=== PATIENT | female | born 1995 | race Caucasian/White ===

== ENCOUNTER 2020-02-18 18:03 | Emergency (ER) | payer SELFPAY ==
--- NOTE | ~2020-02-18 | US_ITS ---
EXAMINATION: US OB <=14 wk fetus w TV EXAM DATE: 02/18/2020 19:42 INDICATION: , pelvic pain. First trimester. TECHNIQUE: Pelvic obstetrical transabdominal sonogram was performed by a technologist. There are mu ltiple grayscale and Doppler images available for interpretation. Correlation is made to CT abdomen p braulio 02/15/2019. FINDINGS: The uterus measures 10.0 x 6.3 x 6.9 cm, is retroverted. There is an intrauterine gestation sac with mean sac diameter measured 1.8 cm, and a pole measuring 7 mm corresponding to estimat ed gestational age 6 weeks 4 days. heart rate identified at 124 bpm. There is a subchorionic he matoma measuring 2.4 x 1.4 x 1.6 cm. Yolk sac identified. The ovaries are unremarkable. IMPRESSION: Early live intrauterine gestation with moderate size subchorionic hematoma. Reviewed, dictated and finalized at location A. IMPRESSION: Early live intrauterine gestation with moderate size subchorionic h ematoma.
[2020-02-18 18:35] VITALS: BP 107/55; PULSE 80; RESP 18; TEMP 36.9; O2SAT 100
[2020-02-18] MEDS: SODIUM CHLORIDE 0.9% IV 1,000 ML 999 ML IV CONT (18:52)
--- NOTE | 2020-02-18 18:54 | ED.GENADULT ---
HPI - General Adult General Chief complaint: Nausea/Vomiting/Diarrhea <Pako Garcia PA-C - Last Filed: 02/18/20 19:57> Stated complaint: , VOMITING, ABD PAIN <Pako Garcia PA-C - Last Filed: 02/18/20 19:57> Time Seen by Provider: 02/18/20 18:19 <Pako Garcia PA-C - Last Filed: 02/18/20 19:57> Source: patient and family <Pako Garcia PA-C - Last Filed: 02/18/20 19:57> Mode of arrival: ambulatory <Pako Garcia PA-C - Last Filed: 02/18/20 19:57> Limitations: no limitations <Pako Garcia PA-C - Last Filed: 02/18/20 19:57> History of Present Illness HPI narrative: Patient is a 24-year-old female who presents to emergency department for evaluation of cramping in the left lower adnexa. Patient notes aching pain and cramping over the last couple of days is also had episodes of emesis. Patient denies vaginal bleeding discharge or urinary symptoms. Patient has upcoming scheduled visit with her scada technician but has not had a visit yet for this . Patient has not taken anything for her symptoms. On arrival patient resting comfortably in the room in no distress. Patient is G2, P1 and is 4 to 5 weeks per last menstrual period <Pako Garcia PA-C - Last Filed: 02/18/20 19:57> Related Data Allergies/adverse reactions: Allergies Allergy/AdvReac Type Severity Reaction Status Date / Time amoxicillin Allergy Mild rash Verified 02/18/20 18:39 Penicillins Allergy Mild RASH Verified 02/18/20 18:39 <Pako Garcia PA-C - Last Filed: 02/18/20 19:57> Review of Systems Review of Systems: All systems reviewed & are unremarkable except as noted in HPI and below <Pako Garcia PA-C - Last Filed: 02/18/20 19:57> [facility] Social History Social History: Social History Gender identity (if verbalized by the patient): Female <KAELA Smith Last Filed: 02/18/20 19:57> Exam Narrative: Exam Narrative: GENERAL: Well-appearing, well-nourished, and in no acute distress. HEAD: Normocephalic, atraumatic. EYES: PERRLA and EOMI. ENT: Nares clear, no rhinorrhea or epistaxis. Mucous membranes moist. CHEST: Clear to auscultation. No respiratory distress. No wheezes rales or rhonchi HEART: Regular rate and rhythm. No murmur heard. Normal peripheral pulses. ABDOMEN: Soft, nontender, nondistended EXTREMITIES: Normal range of motion. No edema. SKIN: Warm, dry, no rash. NEURO: No focal deficits. Alert and oriented x3. Cranial nerves II through XII grossly intact PSYCH: Normal mood and affect. <KAELA Smith Last Filed: 02/18/20 19:57> Course Course Emergency Course: Patient in the room aware of case findings treatment plan and diagnosis resting comfortably hydrated given medications in the emergency department aware of discussion with her specialist agreeing to follow-up as directed provided with reasons to return no high risk changes in the blood work <KAELA Smith Last Filed: 02/18/20 19:57> Consultations Consultation #1: Discussed case with on-call scada technician who will follow patient in clinic <KAELA Smith Last Filed: 02/18/20 19:57> Date: 02/18/20 <KAELA Smith Last Filed: 02/18/20 19:57> Time: 19:53 <KAELA Smith Last Filed: 02/18/20 19:57> Vital Signs Vital signs: Vital Signs Temperature 36.9 C 02/18/20 18:35 Pulse Rate 80 02/18/20 18:35 Respiratory Rate 18 02/18/20 18:35 Blood Pressure 107/55 L 02/18/20 18:35 Pulse Oximetry 100 02/18/20 18:35 Temperature 36.9 C 02/18/20 18:35 Pulse Rate 98 02/18/20 20:49 Respiratory Rate 12 02/18/20 20:49 Blood Pressure 93/60 L 02/18/20 20:49 Pulse Oximetry 100 02/18/20 20:49 <KAELA Smith Last Filed: 02/18/20 19:57> Vital Signs Temperature 36.9 C 02/18/20 18:35 Pulse Rate 80
[2020-02-18 18:55] LABS: Basophils Absolute Auto 0.1 K/mm3 (0.0-0.1); Basophils Percent Auto 0.6 % (0.2-1.2); Eosinophils Absolute Auto 0.3 K/mm3 (0-0.3); Eosinophils Percent Auto 2.3 % (0-4.4); Hematocrit 36.9 % (37.0-47.0); Immature Granulocyte Absolute 0.02 K/mm3 (0.00-0.031); Immature Granulocyte Percent A 0.2 % (0-0.5); Lymphocytes Absolute Auto 2.96 K/mm3 (0.9-3.2); Lymphocytes Percent Auto 26.4 % (18.3-44.2); Mean Corpuscular HGB Conc 32.5 g/dl (32-36); Mean Corpuscular Hemoglobin 27.8 pg (26-34); Mean Corpuscular Volume 85.6 fl (80-100); Mean Platelet Volume 10.2 fl (7.4-10.4); Monocytes Absolute Auto 0.9 K/mm3 (0.1-0.6); Neutrophils Percent Auto 62.5 % (45.5-73.1); Platelet Count Result 246 k/mm3 (150-375); Red Blood Count 4.31 M/mm3 (4.2-5.4); Red Cell Distribution Width 13.6 % (11.5-14.5); White Blood Count 11.2 K/mm3 (4.5-10.0)
[2020-02-18] MEDS: PROCHLORPERAZINE EDISYLATE 10 MG/2 ML VIAL IV PUSH (18:59)
[2020-02-18 19:07] LABS: Alanine Aminotransferase 16 U/L (4-35); Albumin Level 4.3 g/dL (3.5-5.1); Alkaline Phosphatase 42 U/L (38-126); Aspartate Amino Transferase 21 U/L (14-36); Bilirubin,Total 0.2 mg/dL (0.2-1.3); Blood Urea Nitrogen 7 mg/dL (7-17); Calcium 9.3 mg/dL (8.4-10.2); Carbon Dioxide 26 mmol/L (22-30); Chloride 103 mmol/L (98-107); Estimated CRCL calculation 144 ml/min; Estimated Glomerular Filt Rate > 60; Glucose 91 mg/dL (65-105); Potassium 3.5 mmol/L (3.4-5.0); Sodium 137 mmol/L (137-145)
--- NOTE | 2020-02-18 19:20 | PC.NURSE ---
pt to ct
--- NOTE | 2020-02-18 19:20 | PC.NURSE ---
assumed care of pt at this time. report from CHELLE Ulloa
[2020-02-18 20:06] LABS: Add Urine Microscopic? YES; Appearance Urine Clear (Clear); Bacteria Urine Trace /hpf; Bilirubin Urine Negative (Negative); Blood Urine Negative (Negative); Color Urine Yellow (Yellow); Glucose Urine UA Negative (Negative); Ketones Urine Trace mg/dL (Negative); Leukocyte Esterase Ur Negative LEU/UL (Negative); Mucus Urine Heavy /lpf; Nitrate Urine Negative (Negative); Protein Urine 1+ mg/dL (Negative); Squamous Epithelial Cell Urine Occasional /hpf (Few)
[2020-02-18 20:09] LABS: Specific Grav Ur 1.035 (1.001-1.035)
[2020-02-18] MEDS: LACTATED RINGERS 1,000 ML 999 ML IV CONT (20:13)
[2020-02-18 20:14] VITALS: BP 101/59; PULSE 73; RESP 12; O2SAT 98
[2020-02-18 20:49] VITALS: BP 93/60; PULSE 98; RESP 12; O2SAT 100
== END 2020-02-18 20:49 | disposition home or self-care (01) ==
PROVIDERS: Emergency Medicine Emergency Medical Services; Emergency Provider Emergency Medicine
DX: O26.891 Other specified pregnancy related conditions, first trimester (principal); R10.30 Lower abdominal pain, unspecified; O46.8X1 Other antepartum hemorrhage, first trimester; Z3A.01 Less than 8 weeks gestation of pregnancy
CPT/HCPCS: 36415; 76801; 76817; 80053; 81001; 84702; 85025; 86850; 86900; 86901; 96361; 96365; 96375; 99284; J0131; J0780; J7030; J7120

== ENCOUNTER 2020-09-30 10:02 | Outpatient (CLI) | payer OTHER, SELFPAY ==
[2020-09-30 10:53] LABS: Hematocrit 31.3 % (37.0-47.0); Hemoglobin 10.2 g/dL (12.0-15.0); Mean Corpuscular HGB Conc 32.6 g/dl (32-36); Mean Corpuscular Hemoglobin 26.6 pg (26-34); Mean Corpuscular Volume 81.5 fl (80-100); Mean Platelet Volume 10.1 fl (7.4-10.4); Platelet Count Result 174 k/mm3 (150-375); Red Blood Count 3.84 M/mm3 (4.2-5.4); Red Cell Distribution Width 13.6 % (11.5-14.5); White Blood Count 8.6 K/mm3 (4.5-10.0)
[2020-09-30 11:30] LABS: Rapid Plasma Reagin Non-Reactive (NonReactive)
== END 2020-09-30 10:03 | disposition home or self-care (01) ==
LOC: ANHLAB 10:04
PROVIDERS: Visit Provider Obstetrics & Gynecology
DX: Z34.93 Encounter for supervision of normal pregnancy, unspecified, third trimester (principal); Z3A.00 Weeks of gestation of pregnancy not specified
CPT/HCPCS: 36415; 85027; 86592; 86850; 86900; 86901

== ENCOUNTER 2020-10-02 05:20 | Inpatient (IN) | payer OTHER, SELFPAY ==
[2020-10-02] VITALS (67 sets, daily range): BP systolic 90–117; BP diastolic 53–82; PULSE 50–128; RESP 13–18; TEMP 36.4–36.9; O2SAT 92–100; BMI 26.1
--- OUTSIDE RECORDS SUMMARY | 2020-10-02 05:24 | XMS_ITS | Encounter Summary ---
:1995 Author Reason for Visit OB visit Assessment and Plan Assessment Note Patient is ___weeks . Discu ssed plan. 1. Routine care Discussion Note: None recorded.Patient educational handouts: No information available. Plan of Care Reminders Provider Appointments Post Op 10/07/2020 Janes Duron Visit 9:00AM MD [facility] None ? ? recorded. Referral None ? ? recorded. Procedures None ? ? recorded. Surgeries None ? ? recorded. Imaging None ? ? recorded. Medications No Medications Reported Medications Administered None recorded. Vitals Height Weight BMI Blood Pressure 5 ft 4 in 151 lbs 25.9 kg/m2 105/68 mm[Hg] Results Lab Results None recorded. Allergies Code Code System Name Reaction Severity Onset 723 RxNorm Amoxicillin ? ? ? Problems Name Status Onset Date Source ? Active 04/06/2020 ? Procedures Date Name Performed by ? 11/06/2015 Delivery Information not avai lable Vaccine List None recorded. Social History Tobacco Smoking Status Former Smoker A
--- OUTSIDE RECORDS SUMMARY | 2020-10-02 05:24 | XMS_ITS ---
:1995 Author Care Team Providers Name Role Phone Panyik Primary Care Provider Unavailable Allergies Code Code System Name Reaction Severity Status Onset 723 RxNorm Amoxicillin ? ? Active ? Medications Name Status Start Date Stop Date ? ? azithromycin 500 mg tablet Active ? Not a vailable TAKE 2 TABLETS BY MOUTH A ONE TIME DOSE Problems Name Status Onset Date Source ? Active 04/06/2020 ? Procedures Date Name Performed by ? 11/06/2015 Delivery Information not avai lable 03/05/2020 US, Obstetric, 1St Trimester [place] [address] [place] [address] ([address]) 04/06/2020 US, Obstetric, Nuchal Translucency [facility] [place] [address] [place] [address] ([address]) 05/19/2020 US, Obstetric, Transvaginal [place] [address] [place] [address] ([address]) 05/19/2020 US, Obstetric, 2Nd or 3Rd Trimester [facility] [address] [place] [address] ([address]) Results Lab Results
--- OUTSIDE RECORDS SUMMARY | 2020-10-02 05:24 | XMS_ITS | Encounter Summary ---
:1995 Author Reason for Visit OB visit Assessment and Plan Assessment Note Patient is ___weeks . Discu ssed plan. 1. screening Discussion Note: None recorded.Patient educational handouts: No [...] BMI Blood Pressure 5 ft 4 in 153 lbs 26.3 kg/m2 101/64 mm[Hg] Results Lab Results None recorded. Allergies Code Code System Name Reaction Severity Onset 723 RxNorm Amoxicillin ? ? ? Problems Name Status Onset Date Source ? Active 04/06/2020 ? Procedures Date Name Performed by ? 11/06/2015 Delivery Information not avai lable Vaccine List None recorded. Social History Tobacco Smoking Status Former Smoker [place]
--- OUTSIDE RECORDS SUMMARY | 2020-10-02 05:24 | XMS_ITS | Encounter Summary ---
[...] ft 4 in 151 lbs 25.9 kg/m2 98/64 mm[Hg] Results Lab Results None recorded. Allergies Code Code System Name Reaction Severity Onset 723 RxNorm Amoxicillin ? ? ? Problems Name Status Onset Date Source ? Active 04/06/2020 ? Procedures Date Name Performed by ? 11/06/2015 Delivery Information not avai lable Vaccine List None recorded. Social History Tobacco Smoking Status Former Smoker A
--- OUTSIDE RECORDS SUMMARY | 2020-10-02 05:24 | XMS_ITS | Encounter Summary ---
:1995 Author Reason for Visit OB visit OB [id number] EDC 10/08/2020 LMP 01/07/2020 Assessment and Plan Assessment Note Patient is 38___weeks . Dis cussed plan. 1. Routine care Discussion Note: None [...] BMI Blood Pressure 5 ft 4 in 152 lbs 26.1 kg/m2 102/68 mm[Hg] Results Lab Results None recorded. Allergies Code Code System Name Reaction Severity Onset 723 RxNorm Amoxicillin ? ? ? Problems Name Status Onset Date Source ? Active 04/06/2020 ? Procedures Date Name Performed by ? 11/06/2015 Delivery Information not avai lable Vaccine List None recorded. Social History
--- OUTSIDE RECORDS SUMMARY | 2020-10-02 05:24 | XMS_ITS | Encounter Summary ---
:1995 Author Reason for Visit OB visit 28wks 0days Assessment and Plan 1. Routine care Discussion Note: None recorded.Patient educational handouts: No information available. Plan of Care Reminders Provider Appointments Post Op 10/07/2020 Janes Duron Visit 9:00AM MD [facility] None ? ? recorded. Referral None ? ? recorded. Procedures None ? ? recorded. Surgeries None ? ? recorded. Imaging None ? ? recorded. Medications No Medications Reported Medications Administered None recorded. Vitals Height 5 ft 4 in Results Lab Results None recorded. Allergies Code Code System Name Reaction Severity Onset 723 RxNorm Amoxicillin ? ? ? Problems Name Status Onset Date Source ? Active 04/06/2020 ? Procedures Date Name Performed by ? 11/06/2015 Delivery Information not avai lable Vaccine List None recorded. Social History Tobacco Smoking Status Former Smoker Alcohol intake None Smokeless Tobacco Status Never used smokeless tobacco Illicit drugs marijuana
[2020-10-02] MEDS: LACTATED RINGERS 1,000 ML 999 ML IV CONT (05:52)
--- NOTE | 2020-10-02 06:28 | LDADM ---
This patient, Amanda Shell, was admitted to Labor/Delivery/Recovery 120 on 10/02/20 at 05:20. Plans for surgery/ and pain management were discussed with patient. Patient/family oriented to hospital policies and general routines including ID bracelet, bed and alarms, visiting hours, pain management, procedures, bathroom and other care routines, personal items, smoking policy, room service/diet and guest tray routines, infant security routines, and visiting hours. Patient/Family are encouraged to report perceived risks to care and to ask questions if they do not understand what they are told or what they should do.
--- NOTE | 2020-10-02 06:54 | WPDANESEPPF ---
Anes - Initial Pre Proc Eval Procedure: Operation Date: 10/02/20 07:30 Proposed Procedures p Repeat Section - Janusz Contreras MD Date/Time: 10/02/20 06:54 Surgeon: Janusz Contreras MD Pre Op Diagnosis: Section Patient Data Age: 25 Gender: F Height: Weight: Last Vital Signs Temp 36.9 C 10/02/20 05:45 Pulse 79 10/02/20 06:15 BP 117/78 10/02/20 06:15 Allergies Allergy/AdvReac Type Severity Reaction Status Date / Time amoxicillin Allergy Mild rash Verified 02/18/20 18:39 Penicillins Allergy Mild RASH Verified 02/18/20 18:39 Home Medications Medication Instructions Recorded Confirmed Type No Home Medications 09/09/20 09/09/20 History Patient hx anesthesia problems: none Family hx anesthesia problems: none PMF Family History Family History (Updated 09/09/20 @ 13:43 by Tashia Clemons RN) Son Asthma Social History Social History (Updated 10/02/20 @ 06:55 by Viraj Lo DO) Social History: marijuana use during Substance use: current Gender identity (if verbalized by the patient): Female Spiritual care concerns: No Anes - Eval Final PreProcedure Day of Procedure 10/02/20 06:54 Patient weight: overweight Heart: regular rate and rhythm Lungs: clear to auscultation and normal air movement Airway: Mallampati scale class III Neurological: alert and oriented Last oral intake: >/= 8 hours ASA classification: II Emergent: no Anesthetic plan: proceed Anesthesia type and monitoring: regional spinal and standard monitoring Informed Consent: The patient's anesthetic plan and its attendant risks and benefits were discussed with the patient/family/POA. Questions were solicited and answers provided to the satisfaction of the patient/family/POA.
[2020-10-02] MEDS: LACTATED RINGERS 1,000 ML 125 ML IV CONT (07:13)
--- NOTE | 2020-10-02 07:31 | PM.IMHP ---
H&P: HPI History of Present Illness Date/Time: 10/02/20 07:31 Chief complaint: Section Narrative: Amanda Shell is a 25 year old female Multiparous female at term with a previous delivery. We have agreed to perform repeat delivery. she denies any loss of fluid, vaginal bleeding, contractions. She reports good movement. She denies any headache, blurry vision, or epigastric pain. She denies any nausea, vomiting , fever, chills. She denies any chest pain or shortness of breath. She understands that injuries can occur in surgery, and that surgical injuries can result in hospitalization, more surgery, and severe illness. Review of Systems Constitutional: Constitutional: Reports no additional constitutional complaints, Denies fatigue, Denies headache(s), Denies lethargy and Denies weakness Eyes: Eyes: Reports no additional eye complaints, Denies blurry vision and Denies photophobia ENT: Reports as per HPI, Denies headache(s) and Denies neck pain Cardiovascular: Cardiovascular: Denies chest pain, Denies diaphoresis, Denies leg edema, Denies palpitations and Denies dyspnea Respiratory: Respiratory: Denies hemoptysis, Denies dyspnea and Denies wheezing Gastrointestinal: Gastrointestinal: Denies abdominal pain, Denies melena, Denies bloating, Denies hematochezia, Denies nausea and Denies vomiting Genitourinary: Genitourinary: Reports no additional female genitourinary complaints Musculoskeletal: Musculoskeletal: Denies joint swelling, Denies neck pain, Denies numbness and Denies stiffness Neurologic: Denies Abnormal speech present, Denies confusion, Denies headache(s), Denies numbness and Denies weakness Psychiatric: Psychiatric: Denies anxiety, Denies confusion, Denies depression, Denies homicidal ideation and Denies suicidal ideation Endocrine: Endocrine: Denies fatigue and Denies palpitations Allergic/Immunologic: Allergic/Immunologic: Denies wheezing [facility] Family History Family History (Updated 09/09/20 @ 13:43 by Tashia Clemons RN) Son Asthma Social History Social History (Updated 10/02/20 @ 06:55 by Viraj Lo DO) Social History: marijuana use during Years smoked: 5 Smoking status: Former smoker Second hand tobacco smoke exposure: No Substance use: current Gender identity (if verbalized by the patient): Female Spiritual care concerns: No Meds Home Medications and Allergies Home Medications Medication Instructions Recorded Confirmed Type No Home Medications 09/09/20 09/09/20 History Allergies Allergy/AdvReac Type Severity Reaction Status Date / Time amoxicillin Allergy Mild rash Verified 02/18/20 18:39 Penicillins Allergy Mild RASH Verified 02/18/20 18:39 Vital Signs Vital Signs - 24 hr 10/02/20 05:45 10/02/20 06:15 Temperature 98.4 F Pulse Rate 112 H 79 Blood Pressure 97/64 L 117/78 Exam Const: General: healthy appearing, comfortable and no acute distress; No confusion Orientation/consciousness: No confusion Eyes: Direct Ophthalmoscopy: No photophobia Resp: Auscultation: clear to auscultation bilaterally, no rales, no rhonchi and no wheezes Cardio: Rate: regular rate Heart sounds: no click, no murmurs and no rubs GI: Inspection: non-distended GI Palp: No abdominal tenderness Auscultation: normal bowel sounds Neuro: General: No confusion Speech: No Abnormal speech present Extrem: General: normal to inspection, no pedal edema and no calf tenderness Assessment and Plan Assessment and plan (1) Previous , delivered, current hospitalization: Code(s): O34.219 - Maternal care for unspecified type scar from previous delivery Status: Acute (2) Term : Code(s): Z34.90 - Encounter for supervision of normal , unspecified, unspecified trimester Status: Acute Assessment and Plan: this patient has a term and a previous ce
[2020-10-02] MEDS: ceFAZolin 2 GM/D5W 50 ML 2 GM/50 ML BAG IVPB (07:51)
--- NOTE | 2020-10-02 08:38 | P.OP_ITS ---
Procedure Note - Detailed Date of procedure: 10/02/20 Pre-op diagnosis: Previous Section Post-op diagnosis: same Procedure performed: low-transverse delivery Description of procedure: The patient was taken the operating room. She was prepped and draped in the dorsal supine position with leftward tilt after induction of spinal anesthetic. When anesthesia was found to be adequate a low- transverse skin incision was made and carried down to the level the fascia with the knife. The fascial incision was made at the midline with a scalpel. The fascial incision was extended laterally with Scales scissors. The fascia was t ented upward superior and inferior with [place] clamps. The rectus muscles were dissected off bluntly. The rectus muscles at the midline. The preperitoneal fat was dissected bluntly at the superior aspect of the separate the rectus muscles. The peritoneal cavity was entered bluntly in the same area. The peritoneal incision was extended superior and inferior with good visualization of bladder. Bladder blade was inserted. A low-transverse incision was made on the uterus with the scalpel. It was carried down the level of the amniotic cavity with a knife. The amniotic cavity bluntly. The uterine incision was made laterally with blunt traction. The infant was delivered. The cord was clamped and cut. The infant was handed off to waiting pediatric staff. Cord bloods were obtained. The placenta was removed manually. The uterus was exteriorized. Uterus cleared of all clots and debris. Uterus closed in 0 Vicryl in a running locked fashion. An imbricating layer of 0 Vicryl was also placed on the to bolster the closure. The uterus was returned to the abdomen. The gutters were cleared of all clots and debris. The fascia was closed 0 Vicryl in a running fashion. Subcutaneous tissue was irrigated and bleeding areas were cauterized. The skin was closed with subcuticular absorbable elbert. The incision was covered with derma schmidt. The patient tolerated the procedure well. She was taken recovery room stable condition. Sponge, lap, needle counts were correct x2. Anesthesia: spinal Surgeon: Janusz Contreras MD Drains: No Packing: No Pathology: none sent Complications: No immediate complications Condition: stable Disposition: floor Findings: Normal maternal anatomy. Below Average size with normal Apgars.
[2020-10-02] MEDS: MORPHINE SULFATE (*CRX) 2 MG/ML INJ IV PUSH (08:57)
[2020-10-02] MEDS: OXYTOCIN 30 UNITS/NS 500 ML 30 UNITS/500 ML BAG 125 UNITS IV CONT (10:10)
--- NOTE | 2020-10-02 11:20 | PC.NURSE ---
Patient transferred to post room #1120 via stretcher. Support person present. Oriented to unit, room, information board, rooming in, admission packet and security measures. Patient verbalizes understanding.
[2020-10-02] MEDS: KETOROLAC 30 MG/ML VIAL (*BKC) IV PUSH ×2 (12:05→18:55)
[2020-10-02] MEDS: DEXTROSE 5%/0.45% SOD CHL 1,000 ML 125 ML IV CONT (14:09)
[2020-10-03 04:30] VITALS: BP 95/54; PULSE 71; RESP 14; TEMP 36.8; O2SAT 100
[2020-10-03 06:08] LABS: Basophils Absolute Auto 0.1 K/mm3 (0.0-0.1); Basophils Percent Auto 0.4 % (0.2-1.2); Eosinophils Absolute Auto 0.1 K/mm3 (0-0.3); Eosinophils Percent Auto 1.1 % (0-4.4); Hematocrit 28.8 % (37.0-47.0); Hemoglobin 9.1 g/dL (12.0-15.0); Immature Granulocyte Absolute 0.03 K/mm3 (0.00-0.031); Immature Granulocyte Percent A 0.3 % (0-0.5); Lymphocytes Absolute Auto 3.12 K/mm3 (0.9-3.2); Lymphocytes Percent Auto 27.2 % (18.3-44.2); Mean Corpuscular HGB Conc 31.6 g/dl (32-36); Mean Corpuscular Hemoglobin 26.3 pg (26-34); Mean Corpuscular Volume 83.2 fl (80-100); Mean Platelet Volume 10.3 fl (7.4-10.4); Monocytes Absolute Auto 0.9 K/mm3 (0.1-0.6); Monocytes Percent Auto 8.2 % (2.6-8.5); Neutrophils Absolute Auto 7.2 K/mm3 (1.3-6.7); Neutrophils Percent Auto 62.8 % (45.5-73.1); Platelet Count Result 156 k/mm3 (150-375); Red Blood Count 3.46 M/mm3 (4.2-5.4); Red Cell Distribution Width 13.7 % (11.5-14.5); White Blood Count 11.5 K/mm3 (4.5-10.0)
[2020-10-03 07:25] VITALS: BP 110/63; PULSE 61; RESP 18; TEMP 36.7
[2020-10-03] MEDS: POLYSACCHARIDE IRON COMPLEX 150 MG CAPSULE PO ×2 (07:28→16:28)
[2020-10-03] MEDS: MULTIVIT/MIN/PREN/FOL AC/IRON TABLET 1 TAB PO (07:28)
[2020-10-03] MEDS: DOCUSATE SODIUM 100 MG CAPSULE PO ×2 (07:28→16:28)
[2020-10-03] MEDS: IBUPROFEN 600 MG TABLET PO ×2 (07:28→16:28)
--- NOTE | 2020-10-03 08:51 | PM.OBPNVD ---
OB - PN: Subj Subjective Date/time seen: 10/03/20 08:51 Patient comments: no complaints baby status: doing well OB - PN: Obj Data Labs CBC & Chem 7: 10/03/20 04:43 Labs: Laboratory Results - last 24 hr 10/03/20 04:43 WBC 11.5 H RBC 3.46 L Hgb 9.1 L Hct 28.8 L MCV 83.2 MCH 26.3 MCHC 31.6 L RDW 13.7 Plt Count 156 MPV 10.3 Immature Gran % (Auto) 0.3 Neut % (Auto) 62.8 Lymph % (Auto) 27.2 Dolores % (Auto) 8.2 Eos % (Auto) 1.1 Baso % (Auto) 0.4 Lymph # (Auto) 3.12 Dolores # (Auto) 0.9 H Eos # (Auto) 0.1 Baso # (Auto) 0.1 Abs Immat Gran (auto) 0.03 Absolute Neuts (auto) 7.2 H Absolute Nucleated RBC 0.0 Nucleated RBC % 0.0 OB - PN A/P Plan day: 1 Plan: routine care Time Spent With Patient Time: Total time spent is greater than 50% in coordination of care (as documented) at patient's floor/unit and/or counseling patient: Review of Systems Review of Systems: All systems reviewed & are unremarkable except as noted in HPI and below Exam Const: General: cooperative Limitations: no limitations
[2020-10-03] MEDS: TETANUS,DIPHTHERIA,AC PERTUSSIS ADULT (0.5 ML) BOOSTRIX IM (16:29)
--- NOTE | 2020-10-03 16:58 | WPDANLDNPN2 ---
Anes-Prog Note L&D-Neuraxial Date/Time: 10/03/20 16:58 Neuraxial medications: intrathecal PF morphine Opiod-related complaints: none Patient feedback: Patient satisfied with post-operative pain management.
--- NOTE | 2020-10-03 16:58 | WPDANLDPN2 ---
Anes-Prog Note L&D Date/Time: 10/03/20 16:58 Comfortable throughout: section Neuraxial method: spinal Epidural/Spinal procedure site: clean & non-tender Neuro status: Neuro function grossly intact. Cardiovascular status: normal Respiratory status: normal Airway patency: baseline Mental status: baseline Post-Op hydration status: normal Vital Signs: Last Vital Signs Temp 36.7 C 10/03/20 07:25 Pulse 61 10/03/20 07:25 Resp 18 10/03/20 07:25 BP 110/63 10/03/20 07:25 Pulse Ox 100 10/03/20 04:30 Pain score (VAS): 0 I/O: Intake & Output 10/03/20 10/03/20 10/03/20 07:59 15:59 23:59 Intake Total 350 Output Total 250 400 Balance 100 -400 Post-procedural complaints: none Patient feedback: Patient satisfied with anesthetic care.
[2020-10-03 19:30] VITALS: BP 100/59; PULSE 62; RESP 12; TEMP 36.8; O2SAT 99
[2020-10-04] MEDS: MULTIVIT/MIN/PREN/FOL AC/IRON TABLET 1 TAB PO (08:55)
[2020-10-04] MEDS: DOCUSATE SODIUM 100 MG CAPSULE PO (08:55)
[2020-10-04] MEDS: IBUPROFEN 600 MG TABLET PO (08:55)
[2020-10-04] MEDS: POLYSACCHARIDE IRON COMPLEX 150 MG CAPSULE PO (08:55)
[2020-10-04 09:00] VITALS: BP 102/67; PULSE 74; RESP 18; TEMP 36.4
--- NOTE | 2020-10-04 09:00 | PC.NURSE ---
Patient viewed the discharge video Mother & Baby Care, The First Two Weeks . Patient was given the opportunity and encouraged to ask questions. Patient verbalized understanding of information shared and has been given the mother/baby guide for home reference.
--- NOTE | 2020-10-04 09:43 | PM.OBPNVD ---
OB - PN: Subj Subjective Date/time seen: 10/04/20 09:43 Patient comments: no complaints baby status: doing well OB - PN: Obj Data Labs CBC & Chem 7: 10/03/20 04:43 OB - PN A/P Plan day: 2 Plan: routine care and discharge home Time Spent With Patient Time: Total time spent is greater than 50% in coordination of care (as documented) at patient's floor/unit and/or counseling patient: Review of Systems Review of Systems: All systems reviewed & are unremarkable except as noted in HPI and below Exam Const: General: cooperative Limitations: no limitations
--- NOTE | 2020-10-04 09:45 | PM.OBDSVD ---
DS: Admitting Diagnosis Admitting Diagnosis Admitting Diagnosis: Previous Section OB - DS: Summary OB Procedures : None OB Procedures Intrapartum: OB Procedures: : None Peripartum Data Procedures: Procedures Operation Date: 10/02/20 07:30 Actual Procedures Side Surgeon p Repeat Section Janusz Contreras MD Time Spent with Patient Time attestation: Total time spent providing and/or coordinating discharge services: DS: Data Data Completed and Pending Pending studies at discharge: Pending at discharge 10/02/20 08:15 Surgical [PTH] Routine Labs on day of discharge: Preliminary micro results at discharge 10/02/20 10:54 Wound Culture - Preliminary Abscess Discharge Plan Discharge Attending physician on discharge: Janusz Contreras Discharging Clinician: Sandy Lopez Patient Disposition: Home, Self-Care Activity: pelvic rest Diet: regular Patient Instructions: Antibiotic Form Stand Alone Forms: General Discharge Information Follow-up/Referrals: Janusz Contreras MD [Physician] - 1 Week Discharge Medications: New hydrocodone-acetaminophen 5-325 mg Tablet 1 tab PO Q3H PRN (Reason: Moderate Pain (4-6)) Qty: 20 RF: 0 polysaccharide iron complex 150 mg iron Capsule 150 mg PO BIDWM Qty: 60 RF: 0 No Action No Home Medications RF: 0 Date of admission: 10/02/20 05:20 Primary Care Provider: UNKNOWN,DOCTOR Admitting Provider: Janusz Contreras Attending physician on admission: Janusz Contreras Condition: Stable
[2020-10-06 09:12] VITALS: BP 107/68; PULSE 75; RESP 20; TEMP 36.8; O2SAT 99
== END 2020-10-04 11:55 | disposition home or self-care (01) | DRG 540 ==
LOC: ANHLDR 08:38 → ANHOB2 11:59
PROVIDERS: Admitting Provider Obstetrics & Gynecology; Visit Provider Obstetrics & Gynecology
PROC: 10D00Z1 Extraction of Products of Conception, Low, Open Approach (ICD-10-PCS; CPT 59514; principal; 2020-10-02 07:30)
DX: O34.211 Maternal care for low transverse scar from previous cesarean delivery (principal); O98.32 Other infections with a predominantly sexual mode of transmission complicating childbirth; A56.8 Sexually transmitted chlamydial infection of other sites; Z3A.39 39 weeks gestation of pregnancy; Z37.0 Single live birth; Z23 Encounter for immunization
CPT/HCPCS: 36415; 85025; 87070; 87205; 88307; 90471; 90653; 90715; A9270; G0008; J0131; J0690; J1100; J1885; J2270; J2274; J2405; J2590; J7120

== ENCOUNTER 2024-07-07 19:05 | Emergency (ER) | payer SELFPAY ==
[2024-07-07 19:08] VITALS: BP 139/81; PULSE 85; RESP 18; TEMP 36.7; O2SAT 100
--- NOTE | 2024-07-07 21:48 | PC.NURSE ---
no answer at triage
== END 2024-07-07 21:40 | disposition left against medical advice (07) ==
DX: Z53.21 Procedure and treatment not carried out due to patient leaving prior to being seen by health care provider (principal)
CPT/HCPCS: 99199

== ENCOUNTER 2024-09-16 23:58 | Emergency (ER) | payer OTHER, SELFPAY ==
--- NOTE | ~2024-09-16 | XR_ITS ---
Left Hand Technique: PA, oblique, and lateral views were obtained. Clinical History: Pinky injury Findings: There is transverse, acute, centered nondisplaced fracture through the midportion of the di stal phalanx of the fifth digit.. Joint spaces are preserved. Soft tissues are unremarkable. Impression: Transverse fracture the fifth distal phalanx, as detailed above. Reviewed, dictated and finalized at location . L FIXER Impression: Transverse fracture the fifth distal phalanx, as detailed above.
[2024-09-17 00:01] VITALS: BP 116/74; PULSE 97; RESP 18; O2SAT 99
--- NOTE | 2024-09-17 00:55 | ED.UPPEXIN ---
HPI - Extremity Injury (Upper) General Chief Complaint: Extremity Injury, Upper Stated Complaint: jammed finger Time Seen by Provider: 09/17/24 00:48 History of Present Illness HPI narrative: 29-year-old female presents emergency department for left 5th digit pain since 8:30 p.m.. Patient states he was at work when she accidentally jammed her finger against a case of energy drinks. She is reporting pain to the distal aspect of her left 5th digit. She is not taking anything for pain. Denies possibility of . Related Data Allergies Allergy/AdvReac Type Severity Reaction Status Date / Time amoxicillin Allergy Mild rash Verified 02/18/20 18:39 Penicillins Allergy Mild RASH Verified 02/18/20 18:39 Review of Systems Review of Systems: All systems reviewed & are unremarkable except as noted in HPI and below PMFSH Family History Family History Son Asthma Social History Social History Social History: marijuana use during Years smoked: 5 Smoking status: Former smoker Second hand tobacco smoke exposure: No Substance use: current Gender identity (if verbalized by the patient): Female Spiritual care concerns: No Exam Narrative: GENERAL: Well-appearing, well-nourished, and in no acute distress. HEAD: Normocephalic, atraumatic. EYES: EOMI ENT: Nares clear, no rhinorrhea or epistaxis. Mucous membranes moist. NECK: Supple. CHEST: Clear to auscultation. No respiratory distress. HEART: Regular rate and rhythm. No murmur heard. Normal peripheral pulses. EXTREMITIES: LUE: tenderness to the distal phalanx of the 5th digit with no obvious deformity. No tenderness remainder of fingers, metacarpals or wrist. No snuffbox tenderness. Patient has full active and passive range of motion of all digits beyond the 5th digit. She is able to fully flex and extend the 5th MCP but does have limited flexion of the PIP and the IP joint secondary to pain. Cap refill less than 2. Sensation intact. No edema or ecchymosis. No skin abrasions or lacerations. SKIN: Warm, dry, no rash. NEURO: No focal deficits. Alert and oriented x3 Course Vital Signs Vital signs: Vital Signs Pulse Rate 97 09/17/24 00:01 Respiratory Rate 18 09/17/24 00:01 Blood Pressure 116/74 09/17/24 00:01 Pulse Oximetry 99 09/17/24 00:01 Oxygen Delivery Room Air 09/17/24 00:01 Pulse Rate 97 09/17/24 00:01 Respiratory Rate 18 09/17/24 00:01 Blood Pressure 116/74 09/17/24 00:01 Pulse Oximetry 99 09/17/24 00:01 Oxygen Delivery Room Air 09/17/24 00:01 MDM - Extremity Injury (Upper) MDM Narrative Medical decision making narrative: 29-year-old female presents to the emergency department for left 5th digit pain after jamming it against a case of energy drinks while at work prior to arrival. Vitals are stable. Exam significant for the above. She is neurovascularly intact without obvious deformity. X-ray of the hand interpreted by myself reveals a nondisplaced oblique flexure of the left 5th distal phalanx. This is consistent with patient's exam findings. She was placed in a finger splint and provided ibuprofen for pain control and follow-up with hand surgery. Encouraged RICE and discuss strict ED return precautions. She is agreeable to plan verbalized understanding. Discharged in stable condition. Discharge Plan Discharge Clinical Impression: Finger fracture, left Qualifiers: Encounter type: initial encounter Finger: little finger Fracture type: closed Phalanx: distal Fracture alignment: nondisplaced Qualified Code(s): S62.667A - Nondisplaced fracture of distal phalanx of left little finger, initial encounter for closed fracture Condition: Stable Instructions: Antibiotic Form, Finger Fracture (ED) Additional Instructions: You were evaluated in the emergency department for finger pain. Your found have a fracture of your left pinky finger. Please continue to wear the splint. Rest, ice, elevate your finger and follow-up with the hand surgeon. Return to the emergency department if you develops significant worsening pain, white finger, or other concerning symptoms. Take Tylenol ibuprofen as needed for pain as directed on the bottle. Prescriptions: No Action hydrocodone-acetaminophen 5-325 mg Tablet 1 tab PO Q3H PRN (Reason: Moderate Pain (4-6)) Qty: 20 0RF polysaccharide iron complex 150 mg iron Capsule 150 mg PO BIDWM Qty: 60 0RF Follow-up/Referrals: Madhav Rondon MD [Physician] - 1 Day UNKNOWN,DOCTOR [Primary Care Provider] -
[2024-09-17] MEDS: IBUPROFEN 400 MG TABLET 800 MG PO (00:59)
[2024-09-17 01:07] VITALS: BP 111/76; PULSE 76; RESP 16; TEMP 36.6; O2SAT 98
== END 2024-09-17 01:08 | disposition home or self-care (01) ==
PROVIDERS: Emergency Provider Physician Assistant
DX: S62.667A Nondisplaced fracture of distal phalanx of left little finger, initial encounter for closed fracture (principal); W23.1XXA Caught, crushed, jammed, or pinched between stationary objects, initial encounter
CPT/HCPCS: 29130; 73130; 99284; A9270